=== PATIENT | female | born 1965 | race Caucasian/White ===

== ENCOUNTER → 2017-01-29 | Outpatient (CLI) | payer BC ==
[~2017-01-29] MED LIST: CALTRATE-600 D600 MG PO; CLARITIN DPS10 MG PO; FISH OIL 1,2001 EACH PO; HYDRODIURIL-DPS25 MG PO; IRON325 M1 PO; MIRALAX17 GM PO; MOBIC15 MG PO; OXY IR DPS5 MG PO; SENOKOT S1 TAB PO; THERA1 EACH PO; TYLENOL DPS325 MG PO; ULTRAM DPS50 MG PO; VASOTEC DPS2.5 MG PO; XARELTO10 MG PO
== END | disposition home or self-care (01) ==
LOC: RAD.S 12:18
DX: R22.31 Localized swelling, mass and lump, right upper limb (principal)

== ENCOUNTER → 2017-02-23 | Outpatient (CLI) | payer BC | END | disposition home or self-care (01) | LOC: RAD.S 07:59 | DX: Z12.31 Encounter for screening mammogram for malignant neoplasm of breast (principal); R92.0 Mammographic microcalcification found on diagnostic imaging of breast ==

== ENCOUNTER → 2017-03-02 | Outpatient (CLI) | payer BC | END | disposition home or self-care (01) | LOC: RAD.S 02-24 07:22 | DX: R92.0 Mammographic microcalcification found on diagnostic imaging of breast (principal); N63 Unspecified lump in breast; R92.8 Other abnormal and inconclusive findings on diagnostic imaging of breast ==